=== PATIENT | female | born 1990 | race Caucasian/White ===

== ENCOUNTER 2023-09-14 01:34 | Emergency (ER) | payer OTHER ==
[~2023-09-14] VITALS: Ht 157.5 cm; Wt 59.0 kg
[2023-09-14 01:40] VITALS: BP 131/91; PULSE 103; RESP 18; TEMP 98.4; O2SAT 98
[2023-09-14] MEDS ORDERED: IBUPROFEN 600 MG TAB PO ONE (01:40)
[2023-09-14 03:31] VITALS: BP 131/91; PULSE 103; RESP 18; TEMP 98.4; O2SAT 98
== END 2023-09-14 03:36 ==
LOC: MED 01:34
DX: S80.12XA Contusion of left lower leg, initial encounter (principal); S80.11XA Contusion of right lower leg, initial encounter; Z02.89 Encounter for other administrative examinations; V89.2XXA Person injured in unspecified motor-vehicle accident, traffic, initial encounter; Y93.89 Activity, other specified; Y92.410 Unspecified street and highway as the place of occurrence of the external cause; Y99.8 Other external cause status
CPT/HCPCS: 73590; 99283